=== PATIENT | female | born 1930 | race Caucasian/White ===

== ENCOUNTER → 2017-05-04 | Outpatient (CLI) | payer OTHER, MEDICARE | LOC: BMCIMAGING 08:07 | PROVIDERS: ATTEND Nurse Practitioner Adult Health | DX: Z12.31 Encounter for screening mammogram for malignant neoplasm of breast (principal); I77.9 Disorder of arteries and arterioles, unspecified; I71.4 Abdominal aortic aneurysm, without rupture; I10 Essential (primary) hypertension; I25.10 Atherosclerotic heart disease of native coronary artery without angina pectoris | CPT/HCPCS: G0202 ==

== ENCOUNTER → 2017-05-11 | Outpatient (CLI) | payer OTHER, MEDICARE | LOC: BMCIMAGING 11:55 | PROVIDERS: ATTEND Physician Assistant Medical | DX: S62.632A Displaced fracture of distal phalanx of right middle finger, initial encounter for closed fracture (principal) ==

== ENCOUNTER → 2017-05-25 | Outpatient (CLI) | payer OTHER, MEDICARE | LOC: BMCIMAGING 11:29 | PROVIDERS: ATTEND Orthopaedic Surgery Hand Surgery | DX: M20.011 Mallet finger of right finger(s) (principal) ==

== ENCOUNTER → 2017-11-24 | Outpatient (CLI) | payer OTHER, MEDICARE | LOC: BMCIMAGING 13:51 | PROVIDERS: ATTEND Family Medicine | DX: S62.392A Other fracture of third metacarpal bone, right hand, initial encounter for closed fracture (principal) ==

== ENCOUNTER → 2018-03-28 | Outpatient (CLI) | payer OTHER, MEDICARE ==
[~2018-03-28] MED LIST: IOPAMIDOL (ISOVUE-300) 100 ML BTL ONE
== END ==
LOC: FIMAGING 15:09
PROVIDERS: ATTEND Nurse Practitioner Adult Health
DX: K57.30 Diverticulosis of large intestine without perforation or abscess without bleeding (principal); R19.7 Diarrhea, unspecified; K59.00 Constipation, unspecified; M51.36 Other intervertebral disc degeneration, lumbar region; N20.0 Calculus of kidney; I70.0 Atherosclerosis of aorta; K42.9 Umbilical hernia without obstruction or gangrene; M85.89 Other specified disorders of bone density and structure, multiple sites
CPT/HCPCS: 74177; Q9967; 82565-PO

== ENCOUNTER → 2018-05-19 | Outpatient (CLI) | payer OTHER, MEDICARE | LOC: BMCIMAGING 08:48 | PROVIDERS: ATTEND Radiology Diagnostic Radiology | DX: Z12.31 Encounter for screening mammogram for malignant neoplasm of breast (principal) ==

== ENCOUNTER → 2018-08-23 | Outpatient (CLI) | payer OTHER, MEDICARE | LOC: BMCIMAGING 13:01 | DX: I71.4 Abdominal aortic aneurysm, without rupture (principal) ==